=== PATIENT | male | born 1990 | race African-American/Black ===

== ENCOUNTER 2022-10-01 10:05 | Emergency (ER) | payer OTHER ==
[~2022-10-01] VITALS: Ht 185.4 cm; Wt 107.0 kg
[2022-10-01 12:22] VITALS: BP 126/60
== END 2022-10-01 12:26 | disposition home or self-care (01) ==
LOC: M ED 10:05
DX: S63.616A Unspecified sprain of right little finger, initial encounter (principal); S62.632A Displaced fracture of distal phalanx of right middle finger, initial encounter for closed fracture; Y92.9 Unspecified place or not applicable; Y93.67 Activity, basketball; Y99.9 Unspecified external cause status

== ENCOUNTER → 2024-03-30 | Outpatient (CLI) | payer OTHER | LOC: M PLARAD 11:21 | PROVIDERS: ATTEND Physician Assistant | DX: M79.644 Pain in right finger(s) (principal); M79.641 Pain in right hand ==

== ENCOUNTER → 2024-04-12 | Outpatient (CLI) | payer OTHER | LOC: M SOG 07:53 | PROVIDERS: ATTEND Physician Assistant | DX: Z53.9 Procedure and treatment not carried out, unspecified reason (principal) ==